=== PATIENT | male | born 1965 | race Caucasian/White ===

== ENCOUNTER 2019-12-03 20:19 | Emergency (ER) | payer OTHER ==
[~2019-12-03] VITALS: Ht 185.4 cm; Wt 117.0 kg
[2019-12-03] MEDS ORDERED: COLCRYS0.6 MG PO (20:35)
--- NOTE | 2019-12-05 17:47 | EKG ---
[facility] [address] [facility] [place] [address] Signed Sinus tachycardia Abnormal QRS-T angle, consider primary T wave abnormality Abnormal ECG No previous ECGs available Confirmed by KEITH BEAVER DO ([id number]) on 12/05/2019 5:47:26 PM Electronically Signed By: KEITH BEAVER DO 12/05/19 1747 PATIENT NAME: EDI LEONG A Electrocardiogram DATE OF : 69 PHYSICIAN: KEITH BEAVER DO REPORT #: [id number] REPORT IS CONFIDENTIAL AND NOT TO BE RELEASED WITHOUT AUTHORIZATION
== END 2019-12-03 23:09 | disposition short-term general hospital (02) ==
LOC: ED 20:19
DX: I26.99 Other pulmonary embolism without acute cor pulmonale (principal); N28.89 Other specified disorders of kidney and ureter; E27.8 Other specified disorders of adrenal gland; Z79.899 Other long term (current) drug therapy
CPT/HCPCS: 70450; 71260; 74174; 80053; 83605; 83690; 83735; 83880; 84484; 85025; 85379; 85610; 85730; 93005; 93010; 99285-25; J1644; J7030; Q9967

== ENCOUNTER 2023-04-21 05:54 | Day surgery (SDC) | payer OTHER ==
[2023-03-06 08:35] VITALS: BP 122/78
[2023-04-17 08:34] VITALS: BP 125/64
[~2023-04-21] VITALS: Ht 185.4 cm; Wt 115.9 kg
[~2023-04-21 05:54] MED LIST: COLCRYS0.6 MG PO; CORTEF20 MG PO; ELIQUIS5 MG PO
[2023-04-21 06:05] VITALS: BP 115/79
[2023-04-21] MEDS ORDERED: FLUDROCORTISON0.1 MG PO (06:08)
--- NOTE | 2023-04-21 07:47 | NUR ---
PT GONE TO PROCEDURE. PRAYED FOR SUCCESSFUL PROCEDURE AND ONGOING BLESSING.
--- NOTE | 2023-04-21 08:10 | NUR ---
04/21/23 0810 Truong,Ludivina 0804 PT ARRIVED TO PACU ON RA, PT AWAKE AND TALKING TO RN. PT ENCOURAGED TO PASS GAS.
[2023-04-21 08:23] VITALS: BP 113/76
--- NOTE | 2023-04-21 11:02 | OR ---
[facility] [address] [place], [place] [address] Signed DATE OF OPERATION: 04/21/2023 SURGEON: Caroline Mcgarry MD PREOPERATIVE DIAGNOSIS: Screening. POSTOPERATIVE DIAGNOSES: 1. Long redundant colon. 2. Moderate internal hemorrhoids. PROCEDURE: Colonoscopy with hot biopsy. ESTIMATED BLOOD LOSS: None. INDICATIONS: Zeb is a 57-year-old gentleman, asked to see me for his initial screening colonoscopy. He has no lower GI complaints. There is no family history of colon cancer or polyps. He did have both his adrenal glands removed along with the kidney for his renal cell carcinoma in 2019 at [facility]. So far, he has been cancer-free. He was diagnosed because he developed a pulmonary embolism that generated the CT scan. As expected, he has been on Eliquis since that time along with his hydrocortisone. In the office, I gave him a pamphlet on colonoscopy. We looked at that together in detail. He understands the nature of the test. There is risk including, but not limited to gas bloating, crampy abdominal pain, bleeding, perforation requiring surgery, and missed diagnosis. We also reviewed the written instructions for the bowel prep line by line. We had him hold his Eliquis five days prior to the procedure. Also, because of his bilateral adrenalectomies, he has received Solu-Medrol 60 mg IV preop. Also in that regard, we have asked for monitored anesthesia care today for careful monitoring, particularly with respect to hypotension. Zeb had expressed understanding and wished to proceed. DESCRIPTION OF PROCEDURE: Zeb was taken into our endoscopy suite and placed in the left lateral decubitus position. He received his Solu-Medrol 60 mg IV preop. He also received Lovenox 40 mg subcutaneously. He was given monitored anesthesia care with propofol infusion per our nurse hand striper. A digital rectal exam was performed, this was unremarkable. Really not much in the way of any external hemorrhoids, there were no masses. His prostate Electronically Signed By: CAROILNE MCGARRY MD 04/21/23 1102 PATIENT NAME: ZEB LEONG OPERATIVE REPORT DATE OF : 69 REPORT #: [id number] PHYSICIAN: CAROLINE MCGARRY MD PCP: HERRERA SNIDER MD REPORT IS CONFIDENTIAL AND NOT TO BE RELEASED WITHOUT AUTHORIZATION [facility] [address] [place], [place] [address] Signed gland starting to become indurated. The adult colonoscope was introduced and advanced under direct visualization of camera. It took a while to get through his long redundant colon with some abdominal compression and increased propofol until we finally got through both the splenic and hepatic flexures, and then down into the cecum itself. We could easily see the appendiceal orifice and ileocecal valve. The scope was then slowly withdrawn. His prep was good. There was no polyps or diverticula throughout the colon or rectum. Once in the rectum, the scope had been retroflexed. He does have moderate internal hemorrhoid columns. After this, the gas was suctioned out. The colonoscope removed. Zeb tolerated the procedure quite well. RECOMMENDATIONS: Zeb will return in 10 years for repeat screening colonoscopy. Because of his Lovenox, he will resume the Eliquis in the morning as usual. He can resume his other medications today. Caroline Mcgarry MD ALB/MODL /[id number] cc: Caroline Mcgarry MD Patient Chart Herrera Snider MD Copies: CAROLINE MCGARRY MD, RUSSELL BARR MD ~ Electronically Signed By: CAROLINE MCGARRY MD 04/21/23 1102 PATIENT NAME: ZEB LEONG OPERATIVE REPORT DATE OF : 69 REPORT #: [id number] PHYSICIAN: CAROLINE MCGARRY MD PCP: HERRERA SNIDER MD REPORT IS CONFIDENTIAL AND NOT TO BE RELEASED WITHOUT AUTHORIZATION
== END 2023-04-21 08:30 | disposition home or self-care (01) ==
LOC: OPS 05:54 → DS 05:54 → OPS 07:30
PROVIDERS: ATTEND Colon & Rectal Surgery
PROC: 0DJD8ZZ Inspection of Lower Intestinal Tract, Via Natural or Artificial Opening Endoscopic (ICD-10-PCS; principal; 2023-04-21 07:30)
DX: Z12.11 Encounter for screening for malignant neoplasm of colon (principal); Z85.528 Personal history of other malignant neoplasm of kidney; Z86.711 Personal history of pulmonary embolism; Z88.0 Allergy status to penicillin; K64.8 Other hemorrhoids
CPT/HCPCS: 00811; J1650; J2001; J2704; J2920; J7121